=== PATIENT | male | born 1990 | race Caucasian/White ===

== ENCOUNTER 2018-06-19 11:07 | Observation (INO) | payer OTHER, MEDICAID, SELFPAY ==
[2018-06-19] VITALS (18 sets, daily range): BP systolic 143–198; BP diastolic 84–152; PULSE 59–95; RESP 11–27; TEMP 36.1–36.4; O2SAT 95–99; BMI 21.2
--- NOTE | 2018-06-19 11:45 | PC.NURSE ---
Hx of uncontrolled HTN. Hasn't taken lisinipril in a year. Headache has been ongoing for approx 1 month, but worsened today. Took 1500 mg of Tylenol without relief this AM. Has vomited 4 times. FAST exam is negative.
--- NOTE | 2018-06-19 12:06 | DI.CT.S_ITS ---
PROCEDURE: CT ORBIT BI WO CON INDICATIONS: headaches x 1 month, worse today, left eye is wandering TECHNIQUE: Noncontrast 2.5 mm axial images acquired through the orbits, with coronal and sagittal reformats. For radiation dose reduction, the following was used: automated exposure control, adjustment of mA and/or kV according to patient size. COMPARISON: None. FINDINGS: Image quality: Excellent. Orbits: Globes are symmetrical. No metallic foreign bodies. The optic nerves are normal in size. No retrobulbar masses or fat abnormalities. The extra-ocular muscles are normal and symmetrical in appearance. Lacrimal glands are normal in size. Optic chiasm is normal. Intracranial: Visualized portions of the cerebral hemispheres, brainstem, and spinal cord are normal. Bones and sinuses: Visualized calvarium and facial bones appear intact. There is bilateral maxillary sinus mucosal thickening and air-fluid levels consistent with acute sinusitis. sinuses and mastoids are clear. IMPRESSION: 1. Normal orbits. 2. Bilateral maxillary sinusitis. Dictated by: Nigel Moreau M.D. on 06/19/2018 at 12:49 Approved by: Nigel Moreau M.D. on 06/19/2018 at 12:50
--- NOTE | 2018-06-19 12:09 | ED_ITS ---
HPI - Headache General Chief Complaint: Hypertension Stated Complaint: pain behind eye Time Seen by Provider: 06/19/18 11:55 Source: patient and family ( mom) Mode of arrival: ambulatory Limitations: no limitations History of Present Illness HPI Narrative: this is a 28-year-old male who comes in with complaint of hypertension, headache and pain behind the eye. Patient states that he has been having headaches for about a month Um today was much worse than normal. He states typically starts in the evening summer over night and wakes him up about 3 or 4 o'clock in the morning he has trouble point back to sleep. Throughout the day it seems to go away and he is more comfortable. He states that he also noticed that his left eye has been sort of wandering. He states it does not seem to line up with the right at all times especially when he is tired. He has not noticed this in the past and his mom states that she has not noticed it until the last month or so. Patient has not had any fevers. He has been having some nausea and vomiting today. She has not had any changes in bowel movements, no urinary incontinence or fecal incontinence. He is not having any new weakness, numbness or difficulty with movement his extremities. No speech difficulties. He has vision difficulties but he states more depth perception or seeing things with both eyes. Patient does have a history of nephrotic syndrome and hypertension related to this. He did use to see a nuclear medical technologist but quit going about a year ago. He also has a history of a clot in his lower intestines and was on Coumadin for a year but stopped taking that. He also used to be on prednisone and atorvastatin as well as lisinopril and stopped all these medications about a year ago. He has not had any follow-up in the last year. He saw Dr. Fox this is primary care doctor a non with his nuclear medical technologist and before that Dr. Kan at [facility]. He does smoke tobacco and marijuana but denies any illicit. Complaint: headache Onset (ago): month(s) ( One month) Onset description: gradual Related Data Home Medications Medication Instructions Recorded Confirmed No Known Home Medications 06/19/18 06/19/18 Allergies Allergy/AdvReac Type Severity Reaction Status Date / Time amoxicillin [From Augmentin] Allergy Verified 06/19/18 11:23 clavulanic acid Allergy Verified 06/19/18 11:23 [From Augmentin] Review of Systems Review of Systems All systems reviewed & are unremarkable except as noted in HPI and below Constitutional Denies chills, Denies fever(s), Denies lethargy and Denies weakness Eyes Reports as per HPI, Reports change in vision, Denies loss of peripheral vision, Denies loss of vision and Reports other ( left eye is wondering) ENT Ears, Nose, Mouth, and Throat: Denies abnormal hearing, Denies change in voice, Denies neck pain and Denies sore throat Cardiovascular Denies chest pain, Denies irregular heart rhythm, Denies lightheadedness, Denies palpitations, Denies dyspnea, Denies dyspnea on exertion and Denies orthopnea Respiratory Denies cough, Denies dyspnea, Denies dyspnea on exertion and Denies wheezing Gastrointestinal Gastrointestinal: Denies abdominal pain, Denies change in bowel habits, Denies constipation, Denies diarrhea, Reports nausea and Reports vomiting Comments: no fecal incontinence Genitourinary Denies urinary frequency and Denies urinary incontinence Musculoskeletal Denies abnormal gait, Denies neck pain, Denies numbness and Denies tingling Integumentary/Breasts Denies rash Neurologic Reports as per HPI, Denies abnormal hearing, Denies abnormal movements, Denies abnormal speech, Denies abnormal gait, Denies focal weakness, Denies loss of vision, Denies numbness, Reports other visual disturbances, Denies sensory deficit, Denies tingling and Denies weakness Endocrine Denies palpitations Allergic/Immunologic Denies wheezing [facility] Medical History Nephrotic syndrome (Chronic) Intestine thrombosis (Chronic) Hyperlipidemia (Chronic) HTN (hypertension) (Chronic) Social History household members: family Smoking Status: Current every day smoker alcohol intake: current Exam Initial Vital Signs Initial Vital Signs: Vital Signs Temperature 97.0 F L 06/19/18 11:26 Pulse Rate 86 06/19/18 11:26 Respiratory Rate 18 06/19/18 11:26 Blood Pressure 192/139 H 06/19/18 11:26 Pulse Oximetry 99 06/19/18 11:26 Const General: cooperative and well developed Nutritional Appearance: well nourished Orientation: alert, awake, oriented x3 and not confused HENMT Head: normal to inspection, normocephalic and atraumatic Ears: external ears normal and TM's normal bilaterally Nose: external nose normal and No nasal discharge Face and sinus: sinuses nontender, face symmetric, no sinus tenderness and No dry mucous membranes Mouth: oral mucosae normal and moist mucous membranes Teeth and gingiva: dentition normal Throat: tonsils normal and uvula midline Eyes Alignment and Position: alignment abnormal (slight misalignment on exam but not constant) Eyelids: eyelids normal Conjunctivae: conjunctivae normal Cornea: corneas normal Pupils: PERRL, normal by confrontation and accommodation normal EOM: EOM intact bilaterally and No nystagmus Direct ophthalmoscopy: normal light reflex Neck Neck: normal visual inspection, trachea midline, No lymphadenopathy, No midline deformity and No JVD Lymphatic: No lymphedema Chest Chest: normal inspection of the chest Resp Effort & Inspection: normal respiratory effort, able to speak in complete sentences, no respiratory distress and no use of accessory muscles Auscultation: clear to auscultation bilaterally, no rales, no rhonchi and no wheezes Cardio Rate: regular rate Rhythm: regular rhythm Heart Sounds: no click, no gallops, no murmurs and no rubs Pulses: normal peripheral pulses GI Inspection: non-distended Palpation: soft, no hepatosplenomegaly, No guarding, No pulsatile mass and No tender Auscultation: normal bowel sounds Neuro General: alert, oriented x3, gait normal, no meningeal signs and no focal motor deficits Cranial Nerves: CN's II-XI intact bilaterally, PERRL, EOM intact bilaterally ( eyes not always in alignment) and No nystagmus Cognition: normal cognition Speech: speech normal Motor: muscle tone normal throughout and strength 5/5 throughout Sensory Exam: no sensory deficits noted DTR's: Rt Patellar: 2+ and Lt Patellar: 2+ Course Orders Ordered: ED Orders 06/19/18 11:41 Complete Blood Count AUTO DIFF Stat Comprehensive Metabolic Panel Stat Partial Thromboplastin Time Stat Procalcitonin Stat Prothrombin Time INR Stat Troponin & CK Cardiac Panel Stat 06/19/18 12:06 CT orbit BI wo con Stat 06/19/18 12:07 CT head/brain wo con Stat 06/19/18 13:28 XR chest 1V Stat 06/19/18 16:14 Consult to Dietitian, Adult Routine 06/19/18 16:30 MRSA PCR Urgent Esmolol HCl (Brevibloc) 2.5 gm in 250 mls @ 0 mls/hr IV TITRATE STEVEN; Protocol Last Admin: 06/19/18 16:36 Dose: Lisinopril (Zestril) 15 mg PO DAILY STEVEN Morphine Sulfate (Morphine) 4 mg IV Q4H PRN PRN Reason: headache Last Admin: 06/19/18 17:56 Dose: 4 mg Discontinued Medications Hydralazine HCl (Apresoline) 10 mg IV NOW ONE Stop: 06/19/18 12:50 Last Admin: 06/19/18 13:24 Dose: 10 mg Sodium Chloride (Normal Saline 0.9%) 1,000 mls @ 1,000 mls/hr IV BOLUS ONE Stop: 06/19/18 13:05 Last Infusion: 06/19/18 14:16 Dose: 0 mls/hr Admin: 06/19/18 12:15 Dose: 1,000 mls/hr Esmolol HCl (Brevibloc) 2.5 gm in 250 mls @ 0 mls/hr IV TITRATE STEVEN; Protocol Last Titration: 06/19/18 17:21 Dose: 0 mls/hr Titration: 06/19/18 15:45 Dose: 18 mls/hr Titration: 06/19/18 15:30 Dose: 18 mls/hr Titration: 06/19/18 15:06 Dose: 18 mls/hr Titration: 06/19/18 14:38 Dose: 18 mls/hr Admin: 06/19/18 14:37 Dose: 180 mls/hr Lisinopril (Zestril) 15 mg PO NOW ONE Stop: 06/19/18 15:09 Last Admin: 06/19/18 16:07 Dose: 15 mg Morphine Sulfate (Morphine) 4 mg IV NOW ONE Stop: 06/19/18 12:07 Last Admin: 06/19/18 12:15 Dose: 4 mg Morphine Sulfate (Morphine) 4 mg IV NOW ONE Stop: 06/19/18 12:50 Last Admin: 06/19/18 13:24 Dose: 4 mg Ondansetron HCl (Zofran) 4 mg IV NOW ONE Stop: 06/19/18 12:07 Last Admin: 06/19/18 12:15 Dose: 4 mg Reevaluation(s) Reevaluation #1: recheck patient's pain improved with pain medication but is returning. His blood pressure is still quite elevated. Plan to re-dose for pain as well as blood pressure medication. Time: 12:49 Reevaluation #2: Patient headache better but still present. Hydralazine made improvement systolic is in the 180s but as sulcus still greater than 100. head CT and orbits, chest x-ray and lab work do not show any acute changes. Time: 14:10 Consultations Consultation #1: Dr. Sol was paged regarding possible admission for hypertensive emergency. Time: 14:10 Vital Signs - 8 hr 06/19/18 11:26 06/19/18 11:37 06/19/18 12:42 Temperature 97.0 F L Pulse Rate 86 72 67 Respiratory Rate 18 14 15 Blood Pressure 192/139 H Blood Pressure [Left Arm] 198/132 H 198/127 H Pulse Oximetry 99 99 98 06/19/18 12:54 06/19/18 13:24 06/19/18 13:53 Temperature Pulse Rate 59 L 95 H 93 H Respiratory Rate 13 Blood Pressure 187/123 H 185/108 H Blood Pressure [Left Arm] 193/152 H Pulse Oximetry 97 06/19/18 14:05 06/19/18 14:40 06/19/18 15:21 Temperature Pulse Rate 67 69 63 Respiratory Rate 13 11 L 18 Blood Pressure Blood Pressure [Left Arm] 184/103 H 166/120 H 171/117 H Pulse Oximetry 99 99 96 06/19/18 15:55 06/19/18 16:07 06/19/18 16:30 Temperature 97.0 F L Pulse Rate 68 64 Respiratory Rate 27 H 20 Blood Pressure 160/117 H 160/117 H 151/108 H Blood Pressure [Left Arm] Pulse Oximetry 95 98 MDM - Headache Lab Data Attestation: I reviewed the patient's lab results. Result diagrams: 06/19/18 11:41 06/19/18 11:41 Lab Results 06/19/18 06/19/18 06/19/18 Range/Units 11:41 11:41 11:41 WBC 7.7 (4.5-11.0) X10^3/uL RBC 5.28 (4.5-5.9) X10^6/uL Hgb 16.5 (13.5-17.5) g/dL Hct 47.5 (41-53) % MCV 90.0 (80-100) fL MCH 31.2 (26-34) PG MCHC 34.7 (30-36) % RDW 15.3 H (11.6-14.8) % Plt Count 311 (150-400) X10^3/uL Neut % (Auto) 57.9 (50-75) % Lymph % (Auto) 31.1 (25-40) % Perry % (Auto) 6.5 (3-14) % Eos % (Auto) 3.0 (2-4) % Baso % (Auto) 1.5 (0-2) % Neut # (Auto) 4500 (1140-2782) /uL PT 10.6 (10.1-12.7) SECONDS INR 1.0 (0.9-1.3) APTT 35 (26.4-36.2) SECONDS Sodium (137-145) mmol/L Potassium (3.4-5.1) mmol/L Chloride (98-107) mmol/L Carbon Dioxide (22-32) mmol/L BUN (9-20) mg/dL Creatinine (0.66-1.25) mg/dL Estimated GFR (>60) mL/min BUN/Creatinine Ratio (6-22) Glucose (70-100) mg/dL Calcium (8.4-10.2) mg/dL Total Bilirubin (0.2-1.3) mg/dL AST (17-59) IU/L ALT (21-72) IU/L Alkaline Phosphatase (38-126) U/L Total Creatine Kinase (55-170) U/L CK-MB (CK-2) Troponin I (0.01-0.034) ng/mL Total Protein (6.3-8.2) g/dL Albumin (3.5-5.0) g/dL Globulin (1.7-4.1) g/dL Albumin/Globulin Ratio (1.0-2.8) Procalcitonin < 0.05 (<0.5) ng/mL Nasal Screen MRSA (PCR) (Negative) 06/19/18 06/19/18 06/19/18 Range/Units 11:41 11:41 16:30 WBC (4.5-11.0) X10^3/uL RBC (4.5-5.9) X10^6/uL Hgb (13.5-17.5) g/dL Hct (41-53) % MCV (80-100) fL MCH (26-34) PG MCHC (30-36) % RDW (11.6-14.8) % Plt Count (150-400) X10^3/uL Neut % (Auto) (50-75) % Lymph % (Auto) (25-40) % Perry % (Auto) (3-14) % Eos % (Auto) (2-4) % Baso % (Auto) (0-2) % Neut # (Auto) (3150-2730) /uL PT (10.1-12.7) SECONDS INR (0.9-1.3) APTT (26.4-36.2) SECONDS Sodium 137 (137-145) mmol/L Potassium 3.8 (3.4-5.1) mmol/L Chloride 104 (98-107) mmol/L Carbon Dioxide 30 (22-32) mmol/L BUN 17 (9-20) mg/dL Creatinine 0.80 (0.66-1.25) mg/dL Estimated GFR > 60.0 (>60) mL/min BUN/Creatinine Ratio 21.3 (6-22) Glucose 100 (70-100) mg/dL Calcium 8.6 (8.4-10.2) mg/dL Total Bilirubin 0.7 (0.2-1.3) mg/dL AST 37 (17-59) IU/L ALT 38 (21-72) IU/L Alkaline Phosphatase 87 (38-126) U/L Total Creatine Kinase 92 (55-170) U/L CK-MB (CK-2) TNP Troponin I < 0.012 (0.01-0.034) ng/mL Total Protein 6.4 (6.3-8.2) g/dL Albumin 3.1 L (3.5-5.0) g/dL Globulin 3.3 (1.7-4.1) g/dL Albumin/Globulin Ratio 0.9 L (1.0-2.8) Procalcitonin (<0.5) ng/mL Nasal Screen MRSA (PCR) Negative for mrsa (Negative) Imaging Data CT scan - head: Radiologist's impression: [address] [address] [address] Scan Report Signed Patient: Simeon Grajeda MR#: [id number] : 1990 Acct:[id number] Age/Sex: 28 / M Date of Service: 06/19/18 Loc: ED Accession Number: [id number] Procedure: CT head/brain wo con Ordering Provider: Raquel Antunez D.O. PROCEDURE: CT HEAD/BRAIN WO CON INDICATIONS: headache x 1 month, patient states left eye is 'wandering TECHNIQUE: Noncontrast 4.5 mm thick angled axial sections acquired from the foramen magnum to the vertex, with coronal and sagittal reformats. For radiation dose reduction, the following was used: automated exposure control, adjustment of mA and/or kV according to patient size. COMPARISON: None. FINDINGS: Image quality: Excellent. CSF spaces: Basal cisterns are patent. No extra-axial fluid collections. Ventricles are normal in size and shape. Brain: No midline shift. No intracranial masses or hemorrhage. Wise-white matter interface is normal. Skull and face: Calvarium and visualized facial bones are intact, without suspicious lesions. Sinuses: Visualized sinuses and mastoids are clear. IMPRESSION: Normal head CT. Dictated by: Nigel Moreau M.D. on 06/19/2018 at 12:47 Approved by: Nigel Moreua M.D. on 06/19/2018 at 12:49 Chest x-ray: Radiologist's impression: CT of orbits: Radiologist's impression: [address] [id number] [address] Scan Report Signed Patient: Simeon Grajeda MR#: [id number] : 1990 Acct:[id number] Age/Sex: 28 / M Date of Service: 06/19/18 Loc: ED Accession Number: [id number] Procedure: CT orbit BI wo con Ordering Provider: Raquel Antunez D.O. PROCEDURE: CT ORBIT BI WO CON INDICATIONS: headaches x 1 month, worse today, left eye is wandering TECHNIQUE: Noncontrast 2.5 mm axial images acquired through the orbits, with coronal and sagittal reformats. For radiation dose reduction, the following was used: automated exposure control, adjustment of mA and/or kV according to patient size. COMPARISON: None. FINDINGS: Image quality: Excellent. Orbits: Globes are symmetrical. No metallic foreign bodies. The optic nerves are normal in size. No retrobulbar masses or fat abnormalities. The extra-ocular muscles are normal and symmetrical in appearance. Lacrimal glands are normal in size. Optic chiasm is normal. Intracranial: Visualized portions of the cerebral hemispheres, brainstem, and spinal cord are normal. Bones and sinuses: Visualized calvarium and facial bones appear intact. There is bilateral maxillary sinus mucosal thickening and air-fluid levels consistent with acute sinusitis. sinuses and mastoids are clear. IMPRESSION: 1. Normal orbits. 2. Bilateral maxillary sinusitis. Dictated by: Nigel Moreau M.D. on 06/19/2018 at 12:49 Approved by: Nigel Moreau M.D. on 06/19/2018 at 12:50 ECG Data Attestation: I personally reviewed and interpreted this ECG as follows: Interpretation: Sinus rhythm with a rate of 78, WA 138, cares to be 89 and QTC of 410. No ST elevation is appreciated. [facility] Narrative Medical decision making narrative: Patient head CT was ordered as he has had complaint of a wandering eye although he had no other neurologic changes. His blood pressure is quite elevated here in the department. CT orbits was also included some as there could be other bleed, mass, infection or other cause. Also concern for hypertensive emergency. Patient's lab work does not show any major changes in terms of her enzymes and his EKG does not show any ST changes. Patient's blood pressure did not respond initially hydralazine was started on esmolol drip. Spoke with Dr. Sol who agreed to the has while drip Um and plan for admission to the ICU Discharge Plan Departure Patient Disposition: Admitted As Inpatient Clinical Impression: Hypertensive emergency Discharge Date/Time: 06/19/18 15:45 Interventions: ED Discharge Assessment Last Done: 06/19/18 17:18 Admit Date/Time: 06/19/18 16:03 Admit Provider: Stephon Sol
[2018-06-19 12:14] LABS: Add Manual Diff / Slide Review NO; Basophils Percent Auto 1.5 % (0-2); Hematocrit 47.5 % (41-53); Hemoglobin 16.5 g/dL (13.5-17.5); Lymphocytes Percent Auto 31.1 % (25-40); Mean Corpuscular HGB Conc 34.7 % (30-36); Mean Corpuscular Hemoglobin 31.2 PG (26-34); Monocytes Percent Auto 6.5 % (3-14); Neutrophils Absolute Auto 4500 /uL (3000-5900); Neutrophils Percent Auto 57.9 % (50-75); Platelet Count 311 X10^3/uL (150-400); Red Blood Cell Count 5.28 X10^6/uL (4.5-5.9); Red Cell Distribution Width 15.3 % (11.6-14.8); White Blood Cell Count 7.7 X10^3/uL (4.5-11.0)
[2018-06-19] MEDS: MORPHINE 4 MG/ML INJ IV ×4 (12:15→22:46)
[2018-06-19] MEDS: SODIUM CHLORIDE 0.9% 1,000 ML 1000 ML IV (12:15)
[2018-06-19] MEDS: ONDANSETRON 4 MG/2 ML INJ IV ×2 (12:15→19:40)
[2018-06-19 12:16] LABS: Prothrombin Time 10.6 SECONDS (10.1-12.7)
[2018-06-19 12:18] LABS: PTT Partial Thromboplastin Tim 35 SECONDS (26.4-36.2)
[2018-06-19 12:22] LABS: Alanine Aminotransferase 38 IU/L (21-72); Albumin 3.1 g/dL (3.5-5.0); Albumin Globulin Ratio 0.9 (1.0-2.8); Alkaline Phosphatase 87 U/L (38-126); Aspartate Aminotransferase 37 IU/L (17-59); BUN Creatinine Ratio 21.3 (6-22); Bilirubin Total 0.7 mg/dL (0.2-1.3); Blood Urea Nitrogen 17 mg/dL (9-20); Calcium 8.6 mg/dL (8.4-10.2); Carbon Dioxide 30 mmol/L (22-32); Chloride 104 mmol/L (98-107); Estimated Glomerular Filt Rate > 60.0 mL/min (>60); Globulin 3.3 g/dL (1.7-4.1); Glucose 100 mg/dL (70-100); HEMOLYSIS < 15 (0-50); Potassium 3.8 mmol/L (3.4-5.1); Sodium 137 mmol/L (137-145); Total Protein 6.4 g/dL (6.3-8.2)
[2018-06-19 12:23] LABS: Creatine Kinase 92 U/L (55-170)
[2018-06-19 12:34] LABS: Troponin I < 0.012 ng/mL (0.01-0.034)
[2018-06-19 12:45] LABS: Procalcitonin < 0.05 ng/mL (<0.5)
[2018-06-19] MEDS: HYDRALAZINE 20 MG/ML VIAL 10 MG IV (13:24)
--- NOTE | 2018-06-19 13:28 | DI.RAD.S_ITS ---
PROCEDURE: XR CHEST 1V INDICATIONS: hypertension headaches TECHNIQUE: One view of the chest was acquired. COMPARISON: [facility], CR, XR CHEST 1VW (PORTABLE), 05/08/2016, 13:15. [facility], CR, XR CHEST 2VW, 05/04/2016, 15:54. FINDINGS: Surgical changes and devices: None. Lungs and pleura: No pleural effusions or pneumothorax. Lungs are clear. Mediastinum: Mediastinal contours appear normal. Heart size is normal. Bones and chest wall: No suspicious bony lesions. Overlying soft tissues appear unremarkable. IMPRESSION: No acute cardiopulmonary disease. Dictated by: Nigel Moreau M.D. on 06/19/2018 at 14:58 Approved by: Nigel Moreau M.D. on 06/19/2018 at 14:58
[2018-06-19] MEDS: ESMOLOL 2.5 GM/250 ML IV.SOLN IV (14:37)
--- NOTE | 2018-06-19 15:27 | P.HP_ITS ---
History of Present Illness Date Patient Seen: 06/19/18 Time Patient Seen: 15:19 Chief complaint: pain behind eye Narrative: Patient is a 28-year-old male with history of minimal change disease , nephrotic syndrome, hypertension who presented to the emergency department due to progressive headache. Patient states he went off his medications about a year ago. Per mom's recollection he was taking lisinopril 15 mg daily, atorvastatin 40 mg daily and prednisone 5 mg daily. He was being followed by Dr. Segundo at [facility] for his nephrology care. Over the past month he has developed progressive left periorbital and temporal headache. He has also noticed some double vision from his left eye. This morning he woke up due to excruciating headache in same location as well as new onset of vomiting. On ER presentation he was markedly hypertensive with blood pressures systolic up to 200 and diastolic up to 150. Head CT without acute findings. He received 10 mg IV hydralazine with BP improving down to about 185/110. However he still has persistent headache of similar intensity. He denies any chest pain, shortness of breath or abdominal pain. Patient was diagnosed with minimal change disease at age 1. His last biopsy was about 2 years ago and apparently was told he has a lot of scarring in his kidneys. 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 He was started on Coumadin which she took for about a year before self discontinuing. Patient admits to difficulty with INR monitoring while on warfarin. Patient History Medical History Nephrotic syndrome (Chronic) Intestine thrombosis (Chronic) Hyperlipidemia (Chronic) HTN (hypertension) (Chronic) Family & Social History Family History: Reviewed 06/19/18 by Stephon Sol MD Safety & Behavioral: Feels Safe in Current Yes Environment Tobacco & Substance use: Smoking Status Current every day smoker alcohol intake frequency 0-2 drinks per day Substance Use Type marijuana Meds Allergies Allergy/AdvReac Type Severity Reaction Status Date / Time amoxicillin [From Augmentin] Allergy Verified 06/19/18 11:23 clavulanic acid Allergy Verified 06/19/18 11:23 [From Augmentin] Review of Systems Review of Systems All systems reviewed & are unremarkable except as noted in HPI and below Exam Vital Signs (past 8 hours): - 06/19/18 11:26 06/19/18 11:37 06/19/18 12:42 Temperature 97.0 F L Pulse Rate 86 72 67 Respiratory Rate 18 14 15 Blood Pressure 192/139 H Blood Pressure [Left Arm] 198/132 H 198/127 H Pulse Oximetry 99 99 98 06/19/18 12:54 06/19/18 13:24 06/19/18 13:53 Temperature Pulse Rate 59 L 95 H 93 H Respiratory Rate 13 Blood Pressure 187/123 H 185/108 H Blood Pressure [Left Arm] 193/152 H Pulse Oximetry 97 06/19/18 14:05 06/19/18 14:40 Temperature Pulse Rate 67 69 Respiratory Rate 13 11 L Blood Pressure Blood Pressure [Left Arm] 184/103 H 166/120 H Pulse Oximetry 99 99 Oxygen Delivery Method Room Air Narrative Exam Narrative: GENERAL: Patient is alert but appears clearly uncomfortable and preferring to keeping his eyes closed HEAD: Atraumatic. Normocephalic. EYES: Pupils equal, round and reactive. Extraocular motions intact. No obvious visual deficit. No scleral icterus. No injection or drainage. OROPHARYNX: moist mucosa NECK: Trachea midline. No JVD or lymphadenopathy. CARDIOVASCULAR: Regular rate and rhythm without murmurs, gallops, or rubs. RESPIRATORY: Clear to auscultation bilaterally. GASTROINTESTINAL: Abdomen nondistended, soft, non-tender. No hepato- splenomegaly, or palpable masses. EXTREMITIES: No edema. NEUROLOGICAL: Alert, well oriented, speech is intact, normal bilateral upper and lower extremity strength SKIN: warm, dry, no rash Objective Imaging Chest x-ray: Radiologist's impression: Normal ECG: CT scan - head: Radiologist's impression: Normal ECG: Normal sinus rhythm, LVH Labs Result Diagrams: 06/19/18 11:41 06/19/18 11:41 Labs: Laboratory Results - last 24 hr 06/19/18 06/19/18 06/19/18 11:41 11:41 11:41 WBC 7.7 RBC 5.28 Hgb 16.5 Hct 47.5 MCV 90.0 MCH 31.2 MCHC 34.7 RDW 15.3 H Plt Count 311 Neut % (Auto) 57.9 Lymph % (Auto) 31.1 [place] % (Auto) 6.5 Eos % (Auto) 3.0 Baso % (Auto) 1.5 Neut # (Auto) 4500 PT 10.6 INR 1.0 APTT 35 Sodium Potassium Chloride Carbon Dioxide BUN Creatinine Estimated GFR BUN/Creatinine Ratio Glucose Calcium Total Bilirubin AST ALT Alkaline Phosphatase Total Creatine Kinase CK-MB (CK-2) Troponin I Total Protein Albumin Globulin Albumin/Globulin Ratio Procalcitonin < 0.05 06/19/18 06/19/18 11:41 11:41 WBC RBC Hgb Hct MCV MCH MCHC RDW Plt Count Neut % (Auto) Lymph % (Auto) [place] % (Auto) Eos % (Auto) Baso % (Auto) Neut # (Auto) PT INR APTT Sodium 137 Potassium 3.8 Chloride 104 Carbon Dioxide 30 BUN 17 Creatinine 0.80 Estimated GFR > 60.0 BUN/Creatinine Ratio 21.3 Glucose 100 Calcium 8.6 Total Bilirubin 0.7 AST 37 ALT 38 Alkaline Phosphatase 87 Total Creatine Kinase 92 CK-MB (CK-2) TNP Troponin I < 0.012 Total Protein 6.4 Albumin 3.1 L Globulin 3.3 Albumin/Globulin Ratio 0.9 L Procalcitonin Assessment & Plan Plan: Assessment/Plan Narrative: 1. Hypertensive emergency: Patient presents with severe headache, diplopia and severely elevated blood pressures in setting of history of hypertension and medication noncompliance. Labs are unremarkable including renal function. He had initial BP lowering with IV hydralazine and was subsequent started on IV esmolol drip in the ER. His BP did shoot back up with wearing off of the hydralazine. Plan: Titrate esmolol to lower BP to 155-160/105-110 for the next 24 hr. Will switch to nicardipine if the esmolol is ineffective. Also start lisinopril 15 mg once daily which is his last dose prior to self discontinuation of medications a year ago. IV morphine as needed for severe headache. Zofran as needed for nausea and vomiting. Regular diet as tolerated. Patient is critically ill and admitted to the ICU as he needs at least q.1 hour monitoring and continue IV blood pressure lowering medication. Total time of critical management of about 1 hr during this day's encounter.
[2018-06-19] MEDS: LISINOPRIL 5 MG TABLET 15 MG PO (16:07)
[2018-06-20] VITALS (14 sets, daily range): BP systolic 125–158; BP diastolic 72–110; PULSE 70–100; RESP 11–18; TEMP 36.6–37.4; O2SAT 94–98
[2018-06-20] MEDS: ONDANSETRON 4 MG/2 ML INJ IV (00:29)
--- NOTE | 2018-06-20 06:34 | PC.NURSE ---
Patient slept most of night, startles easily when woke up, calm, cooperative, does not make eye contact. Esmolol gtt off at midnight, restarted at 0130 when SBP > 160, stopped again at 0230 when BP 130/71, readings vary depending on which side patient is lying on. Had 200ml clear bile emesis, IV Zofran effective, c/o headache when BP was elevated at beginning of shift, but resolved when Esmolol restarted, denies pain this am.
--- NOTE | 2018-06-20 08:17 | PM.PN.1 ---
Subjective Date Patient Seen: 06/20/18 Time Patient Seen: 08:18 Interval history: Patient had vomiting around midnight. Headache is improving and rated 3/10 severity this morning upon waking up. No nausea or vomiting this morning. Blood pressure is improving as well to 150/90 range with patient off of the esmolol drip. Exam Vital Signs (past 8 hours): - 06/20/18 01:19 06/20/18 02:03 06/20/18 03:04 Temperature Pulse Rate 78 95 H 70 Respiratory Rate 12 11 L 12 Blood Pressure 153/101 H 156/110 H 125/72 Pulse Oximetry 95 96 95 06/20/18 04:13 06/20/18 05:04 06/20/18 06:00 Temperature 98.7 F Pulse Rate 71 90 82 Respiratory Rate 16 14 14 Blood Pressure 149/89 H 151/107 H 156/93 H Pulse Oximetry 95 96 94 06/20/18 07:22 Temperature 97.9 F Pulse Rate 73 Respiratory Rate 15 Blood Pressure 158/90 H Pulse Oximetry 94 Oxygen Delivery Method Room Air Narrative Exam Narrative: General: Alert, pleasant and cooperative, not in major distress Lungs: Breathing is even and nonlabored Neurological: Affect appropriate, nonfocal Extremities: No edema Skin: No rash Objective Labs Result Diagrams: 06/19/18 11:41 06/19/18 11:41 Labs: Laboratory Results - last 24 hr 06/19/18 06/19/18 06/19/18 11:41 11:41 11:41 WBC 7.7 RBC 5.28 Hgb 16.5 Hct 47.5 MCV 90.0 MCH 31.2 MCHC 34.7 RDW 15.3 H Plt Count 311 Neut % (Auto) 57.9 Lymph % (Auto) 31.1 [place] % (Auto) 6.5 Eos % (Auto) 3.0 Baso % (Auto) 1.5 Neut # (Auto) 4500 PT 10.6 INR 1.0 APTT 35 Sodium Potassium Chloride Carbon Dioxide BUN Creatinine Estimated GFR BUN/Creatinine Ratio Glucose Calcium Total Bilirubin AST ALT Alkaline Phosphatase Total Creatine Kinase CK-MB (CK-2) Troponin I Total Protein Albumin Globulin Albumin/Globulin Ratio Procalcitonin < 0.05 Nasal Screen MRSA (PCR) 06/19/18 06/19/18 06/19/18 11:41 11:41 16:30 WBC RBC Hgb Hct MCV MCH MCHC RDW Plt Count Neut % (Auto) Lymph % (Auto) [place] % (Auto) Eos % (Auto) Baso % (Auto) Neut # (Auto) PT INR APTT Sodium 137 Potassium 3.8 Chloride 104 Carbon Dioxide 30 BUN 17 Creatinine 0.80 Estimated GFR > 60.0 BUN/Creatinine Ratio 21.3 Glucose 100 Calcium 8.6 Total Bilirubin 0.7 AST 37 ALT 38 Alkaline Phosphatase 87 Total Creatine Kinase 92 CK-MB (CK-2) TNP Troponin I < 0.012 Total Protein 6.4 Albumin 3.1 L Globulin 3.3 Albumin/Globulin Ratio 0.9 L Procalcitonin Nasal Screen MRSA (PCR) Negative for mrsa Assessment & Plan Plan: Assessment/Plan Narrative: 1. Hypertensive emergency: Improving course. Patient presented with severe headache, diplopia and severely elevated blood pressures in setting of history of hypertension and medication noncompliance. Initially managed with esmolol drip. Current BP at 20 4 hr goal of less than 160/110 off the esmolol drip. He is scheduled for lisinopril 15 mg once daily this a.m. which is his last dose prior to self discontinuation of medications a year ago. IV morphine as needed for severe headache. Zofran as needed for nausea and vomiting. Regular diet as tolerated.
[2018-06-20] MEDS: LISINOPRIL 5 MG TABLET 15 MG PO (08:19)
[2018-06-20] MEDS: MORPHINE 4 MG/ML INJ IV (08:26)
[2018-06-20] MEDS: ZOLPIDEM 5 MG TABLET 10 MG PO (21:36)
[2018-06-21 00:24] VITALS: BP 133/81; PULSE 105; RESP 16; TEMP 36.8; O2SAT 97
[2018-06-21] MEDS: ZOLPIDEM 5 MG TABLET 10 MG PO (00:30)
--- NOTE | 2018-06-21 00:51 | PC.NURSE ---
Addendum entered by Albina Ward 06/21/18 01:03: Pt states his KHOURY is about 2/10 on pain scale. Original Note: Sensitizer S.N. Pt alert and oriented x's 3, calm and cooperative. Pt stated he was having some difficulty sleeping seemed a little restless. He requested second half of Ambien (5mg). BP: 133/81
[2018-06-21 05:00] VITALS: BP 137/89; PULSE 84; RESP 16; TEMP 36.1; O2SAT 97
--- NOTE | 2018-06-21 07:48 | PM.DS.1 ---
History of Present Illness Chief complaint: pain behind eye Narrative: Patient is a 28-year-old male with history of minimal change disease, nephrotic syndrome, hypertension who presented to the emergency department due to progressive headache. Patient states he went off his medications about a year ago. Per mom's recollection he was taking lisinopril 15 mg daily, atorvastatin 40 mg daily and prednisone 5 mg daily. He was being followed by Dr. Segundo at [facility] for his nephrology care. Over the past month he has developed progressive left periorbital and temporal headache. He has also noticed some double vision from his left eye. This morning he woke up due to excruciating headache in same location as well as new onset of vomiting. On ER presentation he was markedly hypertensive with blood pressures systolic up to 200 and diastolic up to 150. Head CT without acute findings. He received 10 mg IV hydralazine with BP improving down to about 185/110. However he still has persistent headache of similar intensity. He denies any chest pain, shortness of breath or abdominal pain. Patient was diagnosed with minimal change disease at age 1. His last biopsy was about 2 years ago and apparently was told he has a lot of scarring in his kidneys. 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 He was started on Coumadin which she took for about a year before self discontinuing. Patient admits to difficulty with INR monitoring while on warfarin. Discharge Providers Date of admission: 06/19/18 16:03 Consults: 06/19/18 16:14 Consult to Dietitian, Adult Routine Comment: Reason For Exam: weight loss and decreased appetite Discharge provider: Stephon Sol MD Summary Discharge Diagnosis: 1. Hypertensive emergency 2. Nephrotic syndrome Hospital Course: Patient presented with severe hypertension causing intractable headache, vomiting and visual changes. Initial management included hydralazine and esmolol drip. He was subsequently started on oral lisinopril. His symptoms have completely resolved. Blood pressures are running mainly in the 130s systolic and 70s to 80s diastolic at time of discharge. His lisinopril dose at time of discharge is 15 mg daily. I am also restarting his atorvastatin 40 mg daily. I have not started him back on prednisone or warfarin which are medications he was taking a year ago before he self discontinued all meds. 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 Status at Discharge Overall status at discharge: patient is back to baseline Time Spent with Patient Greater than 30 minutes Exam Vital Signs (past 8 hours): - 06/21/18 00:24 06/21/18 05:00 Temperature 98.3 F 97.0 F L Pulse Rate 105 H 84 Respiratory Rate 16 16 Blood Pressure 133/81 137/89 Pulse Oximetry 97 97 Oxygen Delivery Method Room Air Oxygen Flow Rate 0 Objective Labs Result Diagrams: 06/19/18 11:41 06/19/18 11:41 Discharge Plan Discharge Plan Patient Disposition: Home Discharge Med Rec/Prescriptions Prescriptions: New lisinopril 5 mg Tablet 15 mg PO DAILY 30 Days Qty: 90 RF: 0 atorvastatin 40 mg tablet 40 mg PO DAILY Qty: 30 RF: 0 Follow up/Referrals: Cyrus Taylor MD [Non-Staff] - 2 Weeks Provider Discharge Instructions Diet: Regular Discharge Data Attending Provider: Stephon Sol Admit Date/Time: 06/19/18 16:03
--- NOTE | 2018-06-21 07:51 | P.DS_ITS ---
History of Present Illness Chief complaint: pain behind eye Narrative: Patient is a 28-year-old male with history of minimal change disease , nephrotic syndrome, hypertension who presented to the emergency department due to progressive headache. Patient states he went off his medications about a year ago. Per mom's recollection he was taking lisinopril 15 mg daily, atorvastatin 40 mg daily and prednisone 5 mg daily. He was being followed by Dr. Segundo at [facility] for his nephrology care. Over the past month he has developed progressive left periorbital and temporal headache. He has also noticed some double vision from his left eye. This morning he woke up due to excruciating headache in same location as well as new onset of vomiting. On ER presentation he was markedly hypertensive with blood pressures systolic up to 200 and diastolic up to 150. Head CT without acute findings. He received 10 mg IV hydralazine with BP improving down to about 185/110. However he still has persistent headache of similar intensity. He denies any chest pain, shortness of breath or abdominal pain. Patient was diagnosed with minimal change disease at age 1. His last biopsy was about 2 years ago and apparently was told he has a lot of scarring in his kidneys. 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 He was started on Coumadin which she took for about a year before self discontinuing. Patient admits to difficulty with INR monitoring while on warfarin. Discharge Providers Date of admission: 06/19/18 16:03 Consults: 06/19/18 16:14 Consult to Dietitian, Adult Routine Comment: Reason For Exam: weight loss and decreased appetite Discharge provider: Stephon Sol MD Summary Discharge Diagnosis: 1. Hypertensive emergency 2. Nephrotic syndrome Hospital Course: Patient presented with severe hypertension causing intractable headache, vomiting and visual changes. Initial management included hydralazine and esmolol drip. He was subsequently started on oral lisinopril. His symptoms have completely resolved. Blood pressures are running mainly in the 130s systolic and 70s to 80s diastolic at time of discharge. His lisinopril dose at time of discharge is 15 mg daily. I am also restarting his atorvastatin 40 mg daily. I have not started him back on prednisone or warfarin which are medications he was taking a year ago before he self discontinued all meds. He is instructed to reestablish care with his delivery aide Dr. Mathew at [facility]. Status at Discharge Overall status at discharge: patient is back to baseline Time Spent with Patient Greater than 30 minutes Exam Vital Signs (past 8 hours): - 06/21/18 00:24 06/21/18 05:00 Temperature 98.3 F 97.0 F L Pulse Rate 105 H 84 Respiratory Rate 16 16 Blood Pressure 133/81 137/89 Pulse Oximetry 97 97 Oxygen Delivery Method Room Air Oxygen Flow Rate 0 Objective Labs Result Diagrams: 06/19/18 11:41 06/19/18 11:41 Discharge Plan Discharge Plan Patient Disposition: Home Discharge Med Rec/Prescriptions Prescriptions: New lisinopril 5 mg Tablet 15 mg PO DAILY 30 Days Qty: 90 RF: 0 atorvastatin 40 mg tablet 40 mg PO DAILY Qty: 30 RF: 0 Follow up/Referrals: Cyrus Taylor MD [Non-Staff] - 2 Weeks Provider Discharge Instructions Diet: Regular Discharge Data Attending Provider: Stephon Sol Admit Date/Time: 06/19/18 16:03
[2018-06-21] MEDS: LISINOPRIL 5 MG TABLET 15 MG PO (08:10)
[2018-06-21 08:55] VITALS: BP 134/70; PULSE 86; RESP 16; TEMP 36.5; O2SAT 96
--- NOTE | 2018-06-21 10:15 | PC.NURSE ---
Addendum entered by Hieu Gomez R.N. 06/21/18 10:43: Escorted pt to ER entrance/exit where he states he will await his ride home. He ambulated independently with steady gait and was discharged in no acute distress. Original Note: Pt to d/c home today per MD orders. Discharge packet provided to pt. Reviewed medication, educated to use, next dose due, side effects, monitoring BP. Provided diet education. Educated re stroke risk factors. Pt states he has lisinopril at home. Rx sent to pharmacy by Dr. Sol as well. Pt will schedule own follow up appt. Removed PIV with cath tip intact. Pt dressed self. Denies pain. Awaiting ride home from a friend.
== END 2018-06-21 10:40 | disposition home or self-care (01) ==
LOC: ED 14:17 → ICU 06-20 08:29
PROVIDERS: Admitting Provider Internal Medicine; Emergency Provider Emergency Medicine; Visit Provider Internal Medicine
DX: I16.1 Hypertensive emergency (principal); N04.9 Nephrotic syndrome with unspecified morphologic changes; I10 Essential (primary) hypertension; F17.210 Nicotine dependence, cigarettes, uncomplicated
CPT/HCPCS: 36591; 70450; 70480; 71045; 80053; 82550; 84145; 84484; 85025; 85610; 85730; 87797; 93005; 93041; 96361; 96365; 96375; 96376; 99285; 99291; G0378; J0360; J2270; J2405

== ENCOUNTER 2018-12-23 19:38 | Emergency (ER) | payer OTHER, MEDICAID, SELFPAY ==
[2018-06-19 16:06] VITALS: BMI 21.2
[2018-12-23 19:40] VITALS: BP 161/81; PULSE 85; RESP 18; TEMP 36.8; O2SAT 96
[2018-12-23 19:48] VITALS: BP 143/90
[2018-12-23 20:19] LABS: Alanine Aminotransferase 35 IU/L (21-72); Albumin 2.2 g/dL (3.5-5.0); Albumin Globulin Ratio 0.8 (1.0-2.8); Alkaline Phosphatase 88 U/L (38-126); Aspartate Aminotransferase 31 IU/L (17-59); BUN Creatinine Ratio 21.7 (6-22); Bilirubin Total 0.2 mg/dL (0.2-1.3); Blood Urea Nitrogen 26 mg/dL (9-20); Calcium 7.7 mg/dL (8.4-10.2); Carbon Dioxide 25 mmol/L (22-32); Chloride 109 mmol/L (98-107); Estimated Glomerular Filt Rate > 60.0 mL/min (>60); Globulin 2.9 g/dL (1.7-4.1); Glucose 130 mg/dL (70-100); HEMOLYSIS < 15 (0-50); Lipase 97 U/L (23-300); Potassium 5.1 mmol/L (3.4-5.1); Sodium 134 mmol/L (137-145); Total Protein 5.1 g/dL (6.3-8.2)
[2018-12-23 20:37] LABS: Add Manual Diff / Slide Review NO; Basophils Absolute Auto 0 /uL (0-100); Basophils Percent Auto 0.2 % (0-2); Eosinophils Absolute Auto 0 /uL (0-450); Eosinophils Percent Auto 0.1 % (2-4); Hematocrit 39.5 % (41-53); Hemoglobin 13.3 g/dL (13.5-17.5); Lymphocytes Absolute Auto 1900 /uL (1100-4500); Lymphocytes Percent Auto 21.4 % (25-40); Mean Corpuscular HGB Conc 33.7 % (30-36); Mean Corpuscular Hemoglobin 31.3 PG (26-34); Mean Corpuscular Volume 92.8 fL (80-100); Monocytes Absolute Auto 300 /uL (0-900); Monocytes Percent Auto 3.4 % (3-14); Neutrophils Absolute Auto 6600 /uL (1500-7000); Neutrophils Percent Auto 74.9 % (50-75); Platelet Count 407 X10^3/uL (150-400); Red Blood Cell Count 4.26 X10^6/uL (4.5-5.9); Red Cell Distribution Width 13.9 % (11.6-14.8); White Blood Cell Count 8.8 X10^3/uL (4.5-11.0)
[2018-12-23 20:39] LABS: Amorphous Sediment Urine 1+; Bacteria Urine None Seen; RBC Urine 0-1/HPF (0-5/HPF); Squamous Epithelial Cell Urine 0-1 /HPF; WBC Urine 1-5/HPF (0-5/HPF)
[2018-12-23 20:40] LABS: Culture Indicated Urine Cult Not Indicated; Hyaline Casts Urine 1-5/LPF
--- NOTE | 2018-12-23 23:00 | ED_ITS ---
HPI - Abdominal Pain General Chief Complaint: Abdominal Pain Stated Complaint: stomach pain, vomiting Time Seen by Provider: 12/23/18 21:06 Source: patient and family Mode of arrival: ambulatory Limitations: no limitations History of Present Illness HPI narrative: The patient presents the emergency department for epigastric pain and vomiting for the last 2-3 days. Patient states that he does not necessarily feel nauseated, but that whenever he tries to eat, he ends up vomiting shortly thereafter. Patient states that he has been having epigastric pain as well, that comes and goes. He states that it is not necessarily related to any specific thing that he tries to eat. He denies any fevers. No diarrhea. No dysuria. Patient has a history of nephrotic syndrome, and is followed by Nephrology for this. Patient states he has intermittent lower extremity edema related to his kidney function, but that this is not currently an issue. Patient denies chest pain or shortness of breath. No other complaints at this time. Related Data Previous Rx's Medication Instructions Recorded atorvastatin 40 mg PO DAILY #30 tab 06/21/18 ondansetron 4 mg PO QID PRN #14 tab 12/24/18 Allergies Allergy/AdvReac Type Severity Reaction Status Date / Time amoxicillin [From Augmentin] Allergy Verified 06/19/18 11:23 clavulanic acid Allergy Verified 06/19/18 11:23 [From Augmentin] Review of Systems Constitutional Denies chills, Denies fever(s), Denies lethargy and Denies weakness Eyes Denies change in vision, Denies eye discharge, Denies irritation and Denies loss of vision ENT Ears, Nose, Mouth, and Throat: Denies change in voice, Denies neck pain and Denies sore throat Cardiovascular Denies chest pain, Denies irregular heart rhythm, Denies lightheadedness, Denies palpitations, Denies dyspnea, Denies dyspnea on exertion and Denies orthopnea Respiratory Denies cough, Denies dyspnea, Denies dyspnea on exertion and Denies wheezing Gastrointestinal Gastrointestinal: Reports abdominal pain, Denies change in bowel habits, Denies diarrhea, Denies nausea and Reports vomiting Genitourinary Denies hematuria, Denies flank pain, Denies urinary incontinence and Denies urinary urgency Musculoskeletal Denies neck pain Integumentary/Breasts Denies pruritus, Denies erythema, Denies rash and Denies wounds Neurologic Denies confusion, Denies loss of vision and Denies weakness Psychiatric Denies anxiety, Denies confusion, Denies depression, Denies homicidal ideation and Denies suicidal ideation Endocrine Denies palpitations Hematologic/Lymphatic Denies easy bruising Allergic/Immunologic Denies wheezing [facility] Medical History Nephrotic syndrome (Chronic) Intestine thrombosis (Chronic) Hyperlipidemia (Chronic) HTN (hypertension) (Chronic) Social History household members: family Smoking Status: Current every day smoker alcohol intake: current Exam Initial Vital Signs Initial Vital Signs: Vital Signs Temperature 98.3 F 12/23/18 19:40 Pulse Rate 85 12/23/18 19:40 Respiratory Rate 18 12/23/18 19:40 Blood Pressure 161/81 H 12/23/18 19:40 Pulse Oximetry 96 12/23/18 19:40 Const General: cooperative and well developed Nutritional Appearance: well nourished Orientation: alert, awake, oriented x3 and not confused [facility] Head: normocephalic and atraumatic Ears: external ears normal Nose: external nose normal and No nasal discharge Face and sinus: face symmetric and No dry mucous membranes Mouth: oral mucosae normal and moist mucous membranes Teeth and gingiva: dentition normal Eyes General: appearance normal, both eyes and all related structures Eyelids: eyelids normal Conjunctivae: conjunctivae normal Sclera: sclerae normal Pupils: PERRL EOM: EOM intact bilaterally Neck Neck: normal visual inspection, trachea midline, No lymphadenopathy, No midline deformity and No JVD Lymphatic: No lymphedema Chest Chest: normal inspection of the chest Resp Effort & Inspection: normal respiratory effort, able to speak in complete sentences, no respiratory distress and no use of accessory muscles Auscultation: clear to auscultation bilaterally, no rales, no rhonchi and no wheezes Cardio Rate: regular rate Rhythm: regular rhythm Heart Sounds: no click, no gallops, no murmurs and no rubs Pulses: normal peripheral pulses GI Inspection: non-distended Palpation: soft, no hepatosplenomegaly, No guarding, No pulsatile mass and tender (No rebound) Auscultation: normal bowel sounds Back/Spine/Pelvis Back: No CVA tenderness Cervical Spine: cervical ROM normal and No pain with cervical ROM Thoracic/Lumbar Spine: thoracic and lumbar spine normal to inspection Skin General: no rashes or lesions noted, No jaundice and No petechiae Neuro General: alert, oriented x3, gait normal and no focal motor deficits Speech: speech normal Extrem General: full ROM, no clubbing, cyanosis or edema, no pedal edema and no calf tenderness Psych Appearance: well kempt Mental Status: mental status grossly normal Attitude: cooperative Thought Content: normal and suicidality Judgment: judgment good Course Course Narrative: Patient was treated with IV fluids and symptomatic management, worked up with labs and urinalysis. Labs were unremarkable. Patient was sent for CT scan of the abdomen and pelvis, which did not show any further concerning findings that would indicate more serious pathology causing the patient's pain and vomiting. Patient was found to be feeling better after symptomatic tr eatment in the emergency department. I felt he was stable for discharge home. I have discussed with the patient and his mother that it may be helpful for the patient to see a GI specialist. He may otherwise follow up with his primary care physician. Orders Ordered: Discontinued Medications Hydromorphone HCl (Dilaudid) 0.5 mg IV NOW ONE Stop: 12/23/18 22:57 Last Admin: 12/23/18 23:10 Dose: 0.5 mg Sodium Chloride (Normal Saline 0.9%) 1,000 mls @ 150 mls/hr IV CONT STEVEN Last Infusion: 12/24/18 01:28 Dose: 0 mls/hr Admin: 12/23/18 23:09 Dose: 150 mls/hr Ondansetron HCl (Zofran) 4 mg IV NOW ONE Stop: 12/23/18 22:57 Last Admin: 12/23/18 23:22 Dose: Not Given Vital Signs - 8 hr 12/23/18 19:40 12/23/18 19:48 Temperature 98.3 F Pulse Rate 85 Respiratory Rate 18 Blood Pressure 161/81 H Blood Pressure [Right Arm] 143/90 H Pulse Oximetry 96 MDM - Abdominal Pain Medical Records Attestation: I reviewed the patient's medical records. Lab Data Attestation: I reviewed the patient's lab results. Result diagrams: 12/23/18 20:00 12/23/18 20:00 Lab Results 12/23/18 12/23/18 12/23/18 Range/Units 20:00 20:00 20:05 WBC 8.8 (4.5-11.0) X10^3/uL RBC 4.26 L (4.5-5.9) X10^6/uL Hgb 13.3 L (13.5-17.5) g/dL Hct 39.5 L (41-53) % MCV 92.8 (80-100) fL MCH 31.3 (26-34) PG MCHC 33.7 (30-36) % RDW 13.9 (11.6-14.8) % Plt Count 407 H (150-400) X10^3/uL Neut % (Auto) 74.9 (50-75) % Lymph % (Auto) 21.4 L (25-40) % Williams % (Auto) 3.4 (3-14) % Eos % (Auto) 0.1 L (2-4) % Baso % (Auto) 0.2 (0-2) % Neut # (Auto) 6600 (5667-4332) /uL Lymph # (Auto) 1900 (8510-4765) /uL Williams # (Auto) 300 (0-900) /uL Eos # (Auto) 0 (0-450) /uL Baso # (Auto) 0 (0-100) /uL Sodium 134 L (137-145) mmol/L Potassium 5.1 (3.4-5.1) mmol/L Chloride 109 H (98-107) mmol/L Carbon Dioxide 25 (22-32) mmol/L BUN 26 H (9-20) mg/dL Creatinine 1.20 (0.66-1.25) mg/dL Estimated GFR > 60.0 (>60) mL/min BUN/Creatinine Ratio 21.7 (6-22) Glucose 130 H (70-100) mg/dL Calcium 7.7 L (8.4-10.2) mg/dL Total Bilirubin 0.2 (0.2-1.3) mg/dL AST 31 (17-59) IU/L ALT 35 (21-72) IU/L Alkaline Phosphatase 88 (38-126) U/L Total Protein 5.1 L (6.3-8.2) g/dL Albumin 2.2 L (3.5-5.0) g/dL Globulin 2.9 (1.7-4.1) g/dL Albumin/Globulin Ratio 0.8 L (1.0-2.8) Lipase 97 (23-300) U/L Urine RBC 0-1/hpf (0-5/HPF) Urine WBC 1-5/hpf (0-5/HPF) Ur Squamous Epith Cells 0-1 /hpf Amorphous Sediment 1+ Urine Bacteria None seen (None) Hyaline Casts 1-5/lpf (None) Ur Culture Indicated? Cult not indicated Point of care testing: Urine Dip Bedside Urine Glucose 100 mg/dl Bedside Urine Bilirubin - Negative Bedside Urine Ketone - Negative Urine Specific [place] 1.015 Bedside Urine Occult Blood +/- Bedside Urine pH 7.5 Bedside Urine Protein +++ 300 Bedside Urine Urobilinogen - Negative Bedside Urine Nitrite - Negative Bedside Urine Leukocytes - Negative Esterase Imaging Data CT scan - abdomen: Radiologist's impression: PROCEDURE: CT ABDOMEN PELVIS W CON INDICATIONS: abdominal pain, vomiting TECHNIQUE: After the administration of intravenous contrast, 5 mm thick sections acquired from the diaphragm to the symphysis. 5 mm coronal and sagittal reformats were acquired. For radiation dose reduction, the following was used: automated exposure control, adjustment of mA and/or kV according to patient size. COMPARISON: None. FINDINGS: Image quality: Excellent. ABDOMEN: Lung bases: Lung bases are clear. Heart size is normal. Solid organs: Liver is normal in size and enhancement. Gallbladder is normal in CT appearance of the. Biliary system is non dilated. Pancreas enhances normally. Spleen is normal in size and enhancement. No adrenal nodules. Kidneys demonstrate normal size and enhancement, without hydronephrosis. Peritoneum and bowel: There is a segment of circumferentially thickened bowel wall involving the proximal jejunum, predominantly in the left upper abdomen. There is mild associated distention. Remainder of the visualized bowel loops demonstrate normal wall thickness and caliber. No free fluid or air. The visualized appendix appears normal. There is minimal circumferential thickening of the stomach which may be due to incomplete distention. There are a few scattered colonic diverticula without acute inflammation. Nodes and vessels: No retroperitoneal or mesenteric adenopathy by size criteria. Aorta and inferior vena cava are normal in size. Miscellaneous: No ventral hernias. PELVIS: Genitourinary: Bladder wall thickness is normal. Miscellaneous: No inguinal hernias or adenopathy. Bones: No suspicious bony lesions. No acute vertebral body compression fractures. IMPRESSION: 1. Segment of thickened small bowel in the upper left abdomen with mild associated distention likely representing enteritis with infectious/inflammatory etiology favored to be most likely. Ischemic etiology thought less likely. There is mild associated adynamic ileus. 2. Minimal gastric wall thickening which may be related to gastritis versus incomplete distention of the stomach. 3. Normal appendix. Findings are concordant with preliminary radiology report. Dictated by: Larry Marie M.D. on 12/24/2018 at 7:32 Approved by: Larry Marie M.D. on 12/24/2018 at 8:00 ECG Data Attestation: I personally reviewed and interpreted this ECG as follows: ( See below) Interpretation: 12 lead EKG performed December 23, 2018, at 7:49 p.m., as follows: Regular ventricular rhythm with a rate of 68 beats per minute ID interval 126 milliseconds QRS duration 81 millisecond QTC interval [address] T wave normal interpretation: Normal sinus rhythm; possible left atrial enlargement; no STEMI; borderline EKG as interpreted by ED MD. Discharge Plan Departure Patient Disposition: Home Clinical Impression: Abdominal pain Qualifiers: Abdominal location: epigastric Qualified Code(s): R10.13 - Epigastric pain Vomiting Qualifiers: Vomiting type: unspecified Vomiting Intractability: non-intractable Nausea presence: without nausea Qualified Code(s): R11.11 - Vomiting without nausea Discharge Date/Time: 12/24/18 01:32 Interventions: ED Discharge Assessment Last Done: 12/24/18 01:31 Instructions: DI for Abdominal Pain-Adult Activity Restrictions/Additional Instructions: Your labs and CT scan looked good. There is no evidence of an emergent condition at this time. You most likely have 1 of the many virus is undergoing around, though you should follow-up with your doctor to discuss whether you need an endoscopy done, if your symptoms last for more than 2 weeks. Otherwise, you may take the medicine to help prevent vomiting, and till you are feeling better. Prescriptions: New ondansetron 4 mg tablet,disintegrating 4 mg PO QID PRN (Reason: nausea and vomiting) Qty: 14 RF: 0 No Action atorvastatin 40 mg tablet 40 mg PO DAILY Qty: 30 RF: 0 Referrals: [facility] [Provider Group]
[2018-12-23] MEDS: SODIUM CHLORIDE 0.9% 1,000 ML 150 ML IV (23:09)
[2018-12-23] MEDS: HYDROMORPHONE 1 MG INJ 0.5 MG IV (23:10)
--- NOTE | 2018-12-24 00:19 | DI.CT.S_ITS ---
PROCEDURE: CT ABDOMEN PELVIS W CON INDICATIONS: abdominal pain, vomiting TECHNIQUE: After the administration of intravenous contrast, 5 mm thick sections acquired from the diaphragm to the symphysis. 5 mm coronal and sagittal reformats were acquired. For radiation dose reduction, the following was used: automated exposure control, adjustment of mA and/or kV according to patient size. COMPARISON: None. FINDINGS: Image quality: Excellent. ABDOMEN: Lung bases: Lung bases are clear. Heart size is normal. Solid organs: Liver is normal in size and enhancement. Gallbladder is normal in CT appearance of the. Biliary system is non dilated. Pancreas enhances normally. Spleen is normal in size and enhancement. No adrenal nodules. Kidneys demonstrate normal size and enhancement, without hydronephrosis. Peritoneum and bowel: There is a segment of circumferentially thickened bowel wall involving the proximal jejunum, predominantly in the left upper abdomen. There is mild associated distention. Remainder of the visualized bowel loops demonstrate normal wall thickness and caliber. No free fluid or air. The visualized appendix appears normal. There is minimal circumferential thickening of the stomach which may be due to incomplete distention. There are a few scattered colonic diverticula without acute inflammation. Nodes and vessels: No retroperitoneal or mesenteric adenopathy by size criteria. Aorta and inferior vena cava are normal in size. Miscellaneous: No ventral hernias. PELVIS: Genitourinary: Bladder wall thickness is normal. Miscellaneous: No inguinal hernias or adenopathy. Bones: No suspicious bony lesions. No acute vertebral body compression fractures. IMPRESSION: 1. Segment of thickened small bowel in the upper left abdomen with mild associated distention likely representing enteritis with infectious/inflammatory etiology favored to be most likely. Ischemic etiology thought less likely. There is mild associated adynamic ileus. 2. Minimal gastric wall thickening which may be related to gastritis versus incomplete distention of the stomach. 3. Normal appendix. Findings are concordant with preliminary radiology report. Dictated by: Larry Marie M.D. on 12/24/2018 at 7:32 Approved by: Larry Marie M.D. on 12/24/2018 at 8:00
[2018-12-24 01:31] VITALS: BP 122/63; PULSE 71; O2SAT 96
== END 2018-12-24 01:32 | disposition home or self-care (01) ==
PROVIDERS: Emergency Provider Emergency Medicine
DX: R10.13 Epigastric pain (principal); R11.11 Vomiting without nausea
CPT/HCPCS: 36415; 74177; 80053; 81003; 81015; 83690; 85025; 93005; 96361; 96374; 96375; 99283; 99285; J1170; Q9967